=== PATIENT | female | born 1935 | race Caucasian/White ===

== ENCOUNTER → 2020-08-01 13:22 | Outpatient (CLI) | payer MEDICARE, OTHER, SELFPAY ==
[2020-08-02 06:48] LABS: COVID19 Sendout Not Detected (Not Detect)
== END ==
PROVIDERS: Family Provider Family Medicine; PCP Family Medicine; Visit Provider Physician Assistant
DX: Z01.812 Encounter for preprocedural laboratory examination (principal)
CPT/HCPCS: 87635

== ENCOUNTER → 2020-08-04 11:49 | Outpatient (CLI) | payer MEDICARE, OTHER, SELFPAY ==
--- NOTE | 2020-08-04 18:14 | DI.NM.S_ITS ---
DATE OF SERVICE: 08/04/2020 INDICATIONS: Atrial fibrillation, chest pain with underlying diabetes mellitus, hyperlipidemia. RADIOPHARMACEUTICAL: A 26.6 millicurie technetium-99m Myoview IV was injected at stress and 10.0 millicurie technetium-99m Myoview IV was injected at rest. CARDIAC STRESS: The patient underwent IV Lexiscan perfusion study under the supervision of an attending staff. The patient received IV Lexiscan as per protocol. Baseline blood pressure 122/88. Patient's blood pressure remained stable. Heart rate was 99 with atrial fibrillation. During Lexiscan, the patient developed atrial fibrillation with fast ventricular rate. Maximum heart rate went up to 152 beats per minute. The tachycardia persisted up until 10 minutes of recovery. In recovery, patient developed significant interscapular pain. The patient was given 75 mg of aminophylline IV. On a scale of 1-10, it was about 7 in intensity. Around 9 minutes in recovery, there was up to [address] depression in lead V1 and aVL. The patient has baseline partial right bundle branch block. Gradually, her interscapular pain was subsided. RAW DATA: Breast shadow was seen. There was increased subdiaphragmatic activity. GATED STUDY: Resting LV ejection fraction 60% and stress LV ejection fraction 72%. Resting end-diastolic volume 58 mL. TID ratio 0.88, which is within normal limits. Lung heart ratio 0.30, which is within normal limits. MYOCARDIAL PERFUSION SCAN: There are no prone images. Stress supine and resting supine images were compared to each other. On resting supine, there was mildly decreased perfusion of basal inferior wall and inferior apex. It improved during stress supine images. Stress supine images revealed normal myocardial perfusion, except some apical thinning. I do not see any significant perfusion defect in his stress supine images. CONCLUSION: As far as perfusion scan is concerned, this is a normal myocardial perfusion scan. However, the patient developed interscapular pain in recovery of Lexiscan infusion which was pretty intense. She has baseline atrial fibrillation with partial right bundle branch block and, at rest, heart rate was about 99. During Lexiscan, there was tachycardic response up to 152 beats per minute, which lasted for longer duration in recovery. In very late recovery, around 9 minutes, the patient developed up to [address] depression in lead I and aVL. Correlate clinically. Cheyanne Horton - PROFESSIONAL [employer]EE [employer]/leonela/sb doc#: [id number]/job#: [id number] dd: 08/04/2020 17:51:00 dt: 08/04/2020 18:05:00 DICTATING MD/COPIES TO: Douglas Bobo MD COPIES MNE: ROSA ISELA;
== END ==
PROVIDERS: Family Provider Family Medicine; PCP Nurse Practitioner; Referring Provider Nurse Practitioner; Visit Provider Nurse Practitioner
DX: I48.0 Paroxysmal atrial fibrillation (principal); I20.8 Other forms of angina pectoris; R07.9 Chest pain, unspecified; E11.9 Type 2 diabetes mellitus without complications
CPT/HCPCS: 78452; 93017; A9502; J2785